=== PATIENT | male | born 1955 | race African-American/Black ===

== ENCOUNTER 2017-04-03 23:25 | Emergency (ER) | payer OTHER ==
[~2017-04-03] VITALS: Ht 172.7 cm; Wt 86.0 kg
[~2017-04-03 23:25] MED LIST: DIFL500T PO; Z.0.NO CURRENT MEDS
[2017-04-03 23:32] VITALS: BP 114/59; PULSE 83; RESP 18; TEMP 98.3; O2SAT 95
[2017-04-03] MEDS ORDERED: SODIUM CHLORIDE 0.9% FLUSH 10 ML FLUSH IVF PRN (23:45)
[2017-04-04 00:01] VITALS: RESP 18; O2SAT 96
[2017-04-04 00:12] LABS: AUTOMATED NEUTROPHIL # 10.4 TH/MM3 (1.8-7.7); BASOPHIL # 0.1 TH/MM3 (0-0.2); BASOPHIL % 0.5 % (0.0-2.0); HEMATOCRIT 35.8 % (39.0-51.0); HEMO FLAGS DIFF FINAL; LYMPH % 13.8 % (9.0-44.0); LYMPHOCYTE # 1.8 TH/MM3 (1.0-4.8); MEAN CELL VOLUME 95.8 FL (80.0-100.0); MEAN CORPUSCULAR HEMOGLOBIN 31.8 PG (27.0-34.0); MEAN CORPUSCULAR HGB CONC 33.2 % (32.0-36.0); NEUT % 78.7 % (16.0-70.0); PLATELET COUNT 195 TH/MM3 (150-450); RED BLOOD COUNT 3.74 MIL/MM3 (4.50-5.90); RED CELL DISTRIBUTION WIDTH 13.8 % (11.6-17.2); WHITE BLOOD COUNT 13.2 TH/MM3 (4.0-11.0)
--- NOTE | 2017-04-04 00:21 | PD ---
HPI . Syncope Chief Complaint: Syncope/Near-Syncope Time Seen by Provider: 23:43 Travel History International Travel<30 days: No Contact w/Intl Traveler<30days: No Traveled to known affect area: No History of Present Illness HPI Patient presents to us via [facility] following a syncopal episode at home. Patient is status post a TURP yesterday. His Claire catheter was removed today. He states that he has had 3-4 episodes of syncope while trying to urinate today. EMS was called the last time and he was brought to us for evaluation. The patient does not have any chest pain or shortness of breath. His syncopal episodes are preceded by a prodrome of feeling hot and dizzy. He has suffered no injury as a result of his syncopal episodes. Patient reports that he is taking Lortab for pain control following surgery. PFS Past Medical History COPD: Yes Genitourinary: Yes Hypertension: Yes Musculoskeletal: Yes (CHRONIC BACK PAIN) Past Surgical History Genitourinary Surgery: Yes (turp) Social History Alcohol Use: Yes (RARELY) Tobacco Use: Yes (1 PPD) Substance Use: No (HX OF COCAINE; DENIES AT THIS TIME) Allergies-Medications (Allergen,Severity, Reaction): Coded Allergies: No Known Allergies (Verified , 04/03/17) Reported Meds & Prescriptions Reported Meds & Active Scripts Active Active Prescriptions or Reported Medications Unobtainable Review of Systems Except as stated in HPI: all other systems reviewed are Neg General / Constitutional: Positive: Other (feels hot just prior to syncope) HENT: Positive: Lightheadedness Neurologic: Positive: Syncope Physical Exam Narrative GENERAL: Patient appears a bit sleepy with some mildly slurred speech. SKIN: Warm and dry. HEAD: Atraumatic. Normocephalic. EYES: Pupils equal and round. ENT: No nasal bleeding or discharge. Mucous membranes pink and moist. NECK: Trachea midline. Neck is supple. CARDIOVASCULAR: Regular rate and rhythm. Heart sounds normal. RESPIRATORY: No accessory muscle use. Lungs are clear with full air movement throughout. GASTROINTESTINAL: Abdomen soft, non-tender, nondistended. MUSCULOSKELETAL: No obvious deformities. No edema. NEUROLOGICAL: Awake and alert. No obvious cranial nerve deficits. Motor grossly within normal limits. Normal speech. PSYCHIATRIC: Appropriate mood and affect; insight and judgment normal. Data Data Last Documented VS Vital Signs Date Time Temp Pulse Resp B/P Pulse Ox O2 Delivery O2 Flow Rate FiO2 04/04/17 00:01 18 96 Nasal Cannula 2 04/03/17 23:32 98.3 83 114/59 Orders Basic Metabolic Panel (Bmp) (04/03/17 23:43) Complete Blood Count With Diff (04/03/17 23:43) Magnesium (Mg) (04/03/17 23:43) Ckmb (Isoenzyme) Profile (04/03/17 23:43) Troponin I (04/03/17 23:43) Ecg Monitoring (04/03/17 23:43) Iv Access Insert/Monitor (04/03/17 23:43) Oximetry (04/03/17 23:43) Sodium Chloride 0.9% Flush (Ns Flush) (04/03/17 23:45) CKMB (04/03/17 23:50) CKMB% (04/03/17 23:50) Labs Laboratory Tests Test 04/03/17 23:50 White Blood Count 13.2 TH/MM3 Red Blood Count 3.74 MIL/MM3 Hemoglobin 11.9 GM/DL Hematocrit 35.8 % Mean Corpuscular Volume 95.8 FL Mean Corpuscular Hemoglobin 31.8 PG Mean Corpuscular Hemoglobin 33.2 % Concent Red Cell Distribution Width 13.8 % Platelet Count 195 TH/MM3 Mean Platelet Volume 7.1 FL Neutrophils (%) (Auto) 78.7 % Lymphocytes (%) (Auto) 13.8 % Monocytes (%) (Auto) 7.0 % Eosinophils (%) (Auto) 0.0 % Basophils (%) (Auto) 0.5 % Neutrophils # (Auto) 10.4 TH/MM3 Lymphocytes # (Auto) 1.8 TH/MM3 Monocytes # (Auto) 0.9 TH/MM3 Eosinophils # (Auto) 0.0 TH/MM3 Basophils # (Auto) 0.1 TH/MM3 CBC Comment DIFF FINAL Differential Comment Sodium Level 133 MEQ/L Potassium Level 3.5 MEQ/L Chloride Level 95 MEQ/L Carbon Dioxide Level 29.9 MEQ/L Anion Gap 8 MEQ/L Blood Urea Nitrogen 20 MG/DL Creatinine 2.39 MG/DL Estimat Glomerular Filtration 34 ML/MIN Rate Random Glucose 149 MG/DL Calcium Level 8.0 MG/DL Magnesium Level 1.4 MG/DL Total Creatine Kinase 205 U/L Creatine Kinase MB 1.3 NG/ML Troponin I LESS THAN 0.02 NG/ML MDM Medical Decision Making Medical Screen Exam Complete: Yes Emergency Medical Condition: Yes Interpretation(s) EKG shows a sinus rhythm with no ST segment elevation or depression. Differential Diagnosis My differential diagnosis of syncope includes but is not limited to cardiac arrhythmia, hypovolemia, anemia, neurological catastrophe, vasovagal response Narrative Course Patient presents status post 3 or 4 syncopal episodes today at home. All have occurred with micturition following a TURP done yesterday. CBC & BMP Diagram 04/03/17 23:50 The patient does not have any recent chemistries for comparison. However, his renal function appears to have been declining over the years. Cardiac enzymes are negative. Diagnosis Primary Impression: Syncope Qualified Code: R55 - Vasovagal syncope Patient Instructions: General Instructions, Syncope (DC) Scripts Unable to Obtain Active Prescriptions or Reported Meds Disposition: DISCHARGE HOME Condition: Stable Nicolle Guthrie MD Apr 04, 2017 00:21
[2017-04-04 00:46] LABS: ANION GAP 8 MEQ/L (5-15); BICARBONATE 29.9 MEQ/L (21.0-32.0); BLOOD UREA NITROGEN 20 MG/DL (7-18); CHLORIDE 95 MEQ/L (98-107); GLOMERULAR FILTRATION RATE 34 ML/MIN (>89); MAGNESIUM 1.4 MG/DL (1.5-2.5); POTASSIUM 3.5 MEQ/L (3.5-5.1); SODIUM (NA) 133 MEQ/L (136-145)
[2017-04-04 00:49] LABS: CREATINE KINASE 205 U/L (39-308)
[2017-04-04 01:02] LABS: CKMB 1.3 NG/ML (0.5-3.6)
[2017-04-04 01:42] VITALS: BP 117/65; PULSE 66; RESP 18; O2SAT 95
[2017-04-04] MEDS ORDERED: TRAM50TA PO (01:47)
[2017-04-04] MEDS ORDERED: UMEC1AER INH (01:47)
[2017-04-04] MEDS ORDERED: PARO10TA2 PO (01:47)
[2017-04-04] MEDS ORDERED: GABA100C4 PO (01:47)
[2017-04-04] MEDS ORDERED: TRAZ50TA12 PO (01:47)
[2017-04-04] MEDS ORDERED: FINA1TAB16 PO (01:47)
[2017-04-04] MEDS ORDERED: LISI-519 PO (01:47)
[2017-04-04] MEDS ORDERED: CYCL5TAB PO (01:47)
[2017-04-04] MEDS ORDERED: HYDR12.57 PO (01:47)
[2017-04-04] MEDS ORDERED: TAMS0.4C4 PO (01:47)
--- NOTE | 2017-04-04 13:59 | EKG ---
Date Performed: 04/03/2017 Time Performed: 23:40:49 PTAGE: 61 years EKG: Sinus rhythm NONSPECIFIC ST & T-WAVE ABNORMALITY Compared to previous tracing, the minor ST changes are new [facility] HAND ECG PREVIOUS TRACING : 08/30/2016 10.01 DOCTOR: Dennys Dupree Interpretating Date/Time 04/04/2017 13:58:24
== END 2017-04-04 01:48 | disposition home or self-care (01) ==
LOC: NEPC 23:25
DX: R55 Syncope and collapse (principal); I10 Essential (primary) hypertension; J44.9 Chronic obstructive pulmonary disease, unspecified; F17.210 Nicotine dependence, cigarettes, uncomplicated; R94.31 Abnormal electrocardiogram [ECG] [EKG]
CPT/HCPCS: 80048; 82550; 82552; 83735; 84484; 85025; 93005; 99283

== ENCOUNTER 2017-04-06 11:26 | Inpatient (IN) | payer OTHER, MEDICARE ==
[~2017-04-06 11:26] MED LIST changes: +CYCL5TAB PO; -DIFL500T PO; +FINA1TAB16 PO; +GABA100C4 PO; +HYDR12.57 PO; +LISI-519 PO; +PARO10TA2 PO; +TAMS0.4C4 PO; +TRAM50TA PO; +TRAZ50TA12 PO; +UMEC1AER INH; -Z.0.NO CURRENT MEDS
[2017-04-06 11:28] VITALS: BP 139/77; PULSE 104; RESP 15; TEMP 99.6; O2SAT 98
--- NOTE | 2017-04-06 11:49 | PD ---
Physical Exam Time Seen by Provider: 11:47 Narrative 61 y/o male here with difficulty urinating, some back pain for the last few days. S/P TURP procedure. Vital signs reviewed. Seen at triage desk. Awaiting bed placement. Data Data Last Documented VS Vital Signs Date Time Temp Pulse Resp B/P Pulse Ox O2 Delivery O2 Flow Rate FiO2 04/06/17 11:28 99.6 104 15 139/77 98 MDM Medical Record Reviewed: Yes Supervised Visit with ZEB: Andrew Chapman Apr 06, 2017 11:48
--- NOTE | 2017-04-06 11:56 | PD ---
HPI Chief Complaint: Complaint Time Seen by Provider: 11:56 Travel History International Travel<30 days: No Contact w/Intl Traveler<30days: No Traveled to known affect area: No History of Present Illness HPI 61-year-old male with history of hypertension and COPD, recent TURP on April 02, [address] Dukes presents to emergency department for evaluation of urinary retention. Patient states that his Rasheed catheter was removed on April 03 and he began having difficulty urinating then. He actually was seen in the hospital that day following a vasovagal syncopal episode while trying to avoid. Patient was discharged home but continued to experience difficulty urinating and today he has been unable to void at all except for minimal gerbils. Reports significant abdominal pressure and flank pain bilaterally. Denies any nausea or vomiting. He has felt chilled without fever. He has no other symptoms to report. PFSH Past Medical History COPD: Yes Genitourinary: Yes Hypertension: Yes Musculoskeletal: Yes (CHRONIC BACK PAIN) Past Surgical History Genitourinary Surgery: Yes (turp) Social History Alcohol Use: Yes (RARELY) Tobacco Use: Yes (1 PPD) Substance Use: No (HX OF COCAINE; DENIES AT THIS TIME) Allergies-Medications (Allergen,Severity, Reaction): Coded Allergies: No Known Allergies (Verified , 04/03/17) Reported Meds & Prescriptions Reported Meds & Active Scripts Active Reported Anoro Ellipta Inh (Umeclidinium/Vilanterol) 62.5-25 Mcg/Act Aero 1 Puff INH DAILY Finasteride (Finasteride (Alopecia)) 1 Mg Tab 1 Mg PO DAILY Hydrochlorothiazide 12.5 Mg Cap 12.5 Mg PO BID Lisinopril 5 Mg Tab 5 Mg PO DAILY Gabapentin 100 Mg Cap 100 Mg PO TID Paroxetine (Paroxetine HCl) 10 Mg Tab 10 Mg PO DAILY Flexeril (Cyclobenzaprine HCl) 5 Mg Tab 5 Mg PO TID Trazodone (Trazodone HCl) 50 Mg Tab 50 Mg PO HS Tramadol (Tramadol HCl) 50 Mg Tab 100 Mg PO TID PRN Tamsulosin (Tamsulosin HCl) 0.4 Mg Cap 0.4 Mg PO HS Review of Systems Except as stated in HPI: all other systems reviewed are Neg Physical Exam Narrative GENERAL: Well-nourished male patient, in mild distress secondary to pain, unable to get comfortable in the fat. SKIN: Focused skin assessment warm/dry. HEAD: Atraumatic. Normocephalic. EYES: Pupils equal and round. No scleral icterus. No injection or drainage. ENT: No nasal bleeding or discharge. Mucous membranes pink and moist. NECK: Trachea midline. No JVD. CARDIOVASCULAR: Tachycardic rate and rhythm. No murmur appreciated. RESPIRATORY: No accessory muscle use. Clear to auscultation. Breath sounds equal bilaterally. GASTROINTESTINAL: Abdomen soft, with moderate distention in the lower abdomen, discomfort with palpation. Hepatic and splenic margins not palpable. MUSCULOSKELETAL: No obvious deformities. No clubbing. No cyanosis. No edema. Bilateral CVA tenderness. NEUROLOGICAL: Awake and alert. No obvious cranial nerve deficits. Motor grossly within normal limits. Normal speech. PSYCHIATRIC: Appropriate mood and affect; insight and judgment normal. Data Data Last Documented VS Vital Signs Date Time Temp Pulse Resp B/P Pulse Ox O2 Delivery O2 Flow Rate FiO2 04/06/17 13:56 81 16 Room Air 04/06/17 11:28 99.6 139/77 98 Orders Basic Metabolic Panel (Bmp) (04/06/17 12:01) Complete Blood Count With Diff (04/06/17 12:01) Prothrombin Time / Inr (Pt) (04/06/17 12:01) Act Partial Throm Time (Ptt) (04/06/17 12:01) Urinalysis - C+S If Indicated (04/06/17 12:01) Ct Abd/Pel W/O Iv Contrast (04/06/17 12:01) Iv Access Insert/Monitor (04/06/17 12:01) Ecg Monitoring (04/06/17 12:01) Oximetry (04/06/17 12:01) Ceftriaxone Inj (Rocephin Inj) (04/06/17 12:15) Sodium Chlor 0.9% 1000 Ml Inj (Ns 1000 M (04/06/17 12:01) Sodium Chloride 0.9% Flush (Ns Flush) (04/06/17 12:15) Electrocardiogram (04/06/17 12:01) Blood Culture (04/06/17 12:04) Lactic Acid Sepsis Protocol (04/06/17 12:04) Urinary Catheter Management HAIDER.Q8H (04/06/17 12:08) Labs Laboratory Tests Test 04/06/17 04/06/17 04/06/17 12:15 12:30 12:40 White Blood Count 11.6 TH/MM3 Red Blood Count 3.51 MIL/MM3 Hemoglobin 11.1 GM/DL Hematocrit 33.3 % Mean Corpuscular Volume 94.8 FL Mean Corpuscular Hemoglobin 31.7 PG Mean Corpuscular Hemoglobin 33.5 % Concent Red Cell Distribution Width 13.3 % Platelet Count 192 TH/MM3 Mean Platelet Volume 6.9 FL Neutrophils (%) (Auto) 75.3 % Lymphocytes (%) (Auto) 13.7 % Monocytes (%) (Auto) 10.7 % Eosinophils (%) (Auto) 0.0 % Basophils (%) (Auto) 0.3 % Neutrophils # (Auto) 8.7 TH/MM3 Lymphocytes # (Auto) 1.6 TH/MM3 Monocytes # (Auto) 1.2 TH/MM3 Eosinophils # (Auto) 0.0 TH/MM3 Basophils # (Auto) 0.0 TH/MM3 CBC Comment DIFF FINAL Differential Comment Prothrombin Time 11.4 SEC Prothromb Time International 1.0 RATIO Ratio Activated Partial 30.5 SEC Thromboplast Time Sodium Level 122 MEQ/L Potassium Level 3.8 MEQ/L Chloride Level 84 MEQ/L Carbon Dioxide Level 28.9 MEQ/L Anion Gap 9 MEQ/L Blood Urea Nitrogen 11 MG/DL Creatinine 1.14 MG/DL Estimat Glomerular Filtration 80 ML/MIN Rate Random Glucose 105 MG/DL Calcium Level 9.0 MG/DL Urine Color LIGHT-RED Urine Turbidity CLEAR Urine pH 6.5 Urine Specific Industry 1.002 Urine Protein 30 mg/dL Urine Glucose (UA) NEG mg/dL Urine Ketones NEG mg/dL Urine Occult Blood LARGE Urine Nitrite NEG Urine Bilirubin NEG Urine Urobilinogen LESS THAN 2.0 MG/DL Urine Leukocyte Esterase LARGE Urine RBC 2 /hpf Urine WBC 7 /hpf Urine Squamous Epithelial <1 /hpf Cells Urine Amorphous Sediment RARE Urine Bacteria FEW /hpf Microscopic Urinalysis Comment CULT NOT INDICATED Lactic Acid Level 1.6 mmol/L [facility] Medical Decision Making Medical Screen Exam Complete: Yes Emergency Medical Condition: Yes Medical Record Reviewed: Yes Differential Diagnosis Urinary retention versus obstruction versus postop infection versus postop complication versus cystitis versus pyelonephritis versus sepsis Narrative Course 61-year-old male presents to emergency department for evaluation of urinary retention and extreme discomfort with bilateral flank pain. Patient appears uncomfortable. Lab work is obtained and IV antibiotics are administered. Patient is provided pain control. A call has been placed to Dr. Dukes. In the meantime a 14 Japanese catheter is inserted with clear pink urinary output. I spoke with Dr. Dukes. He recommends discharge with rasheed catheter and to keep his appt for this week in office. Pt will be discharged pending no lab abnormality is observed. CBC is without leukocytosis. Hemoglobin is 11.1. No significant neutrophilia. BMP is with sodium of 122. Creatinine has improved since lab work on April 03. Lactic acid is 1.6. Urinalysis is with 30 protein area, large occult blood, large leukocyte esterase, 7 WBC, few bacteria, cultures not indicated. Due to patient's hyponatremia, a call has been place to [facility] for admission. Diagnosis Primary Impression: Hyponatremia Additional Impressions: Urinary retention Postoperative urinary retention Condition: Stable Concepcion Villarreal Apr 06, 2017 11:56 Concepcion Villarreal Apr 06, 2017 11:56
[2017-04-06] MEDS ORDERED: SODIUM CHLOR 0.9% 1000 ML INJ 1,000 ML IV SCH (12:01)
[2017-04-06] MEDS ORDERED: cefTRIAXone INJ 1,000 MG in SODIUM CHLORIDE 0.9% INJ 100 ML IV ONE (12:15)
[2017-04-06] MEDS ORDERED: SODIUM CHLORIDE 0.9% FLUSH 10 ML FLUSH IV FLUSH PRN ×2 (12:15→14:15)
[2017-04-06 13:02] LABS: AUTOMATED NEUTROPHIL # 8.7 TH/MM3 (1.8-7.7); BASOPHIL % 0.3 % (0.0-2.0); HEMATOCRIT 33.3 % (39.0-51.0); HEMO FLAGS DIFF FINAL; LYMPH % 13.7 % (9.0-44.0); LYMPHOCYTE # 1.6 TH/MM3 (1.0-4.8); MEAN CELL VOLUME 94.8 FL (80.0-100.0); MEAN CORPUSCULAR HEMOGLOBIN 31.7 PG (27.0-34.0); MEAN CORPUSCULAR HGB CONC 33.5 % (32.0-36.0); MONO % 10.7 % (0.0-8.0); NEUT % 75.3 % (16.0-70.0); PLATELET COUNT 192 TH/MM3 (150-450); RED BLOOD COUNT 3.51 MIL/MM3 (4.50-5.90); RED CELL DISTRIBUTION WIDTH 13.3 % (11.6-17.2); WHITE BLOOD COUNT 11.6 TH/MM3 (4.0-11.0)
[2017-04-06 13:11] LABS: BACTERIA, URINE FEW /hpf; BLOOD, URINE LARGE (NEG); COMMENT (UR) CULT NOT INDICATED; CULTURE IF INDICATED CULT NOT INDICATED; GLUCOSE,URINE NEG (NEG); KETONE, URINE NEG (NEG); NITRITE,URINE NEG (NEG); PH, URINE 6.5 (5.0-8.5); SQUAMOUS EPITHELIAL CELL URINE <1 /hpf (0-5)
[2017-04-06 13:15] LABS: URINE COLOR LIGHT-RED (YELLW/STRAW)
[2017-04-06 13:15] LABS: APTT (PATIENT) 30.5 SEC (24.3-30.1); PROTHROMBIN TIME - PATIENT 11.4 SEC (9.8-11.6)
[2017-04-06 13:26] LABS: BICARBONATE 28.9 MEQ/L (21.0-32.0)
[2017-04-06 13:30] LABS: POTASSIUM 3.8 MEQ/L (3.5-5.1)
--- NOTE | 2017-04-06 13:31 | RADRPT ---
EXAM DATE/TIME: 04/06/2017 13:04 [facility] COMPARISON: No previous studies available for comparison. INDICATIONS : Post turp trouble urinating. ORAL CONTRAST: No oral contrast ingested. RADIATION DOSE: 9.96 CTDIvol (mGy) MEDICAL HISTORY : Hypertension. Renal failure, acute. SURGICAL HISTORY : turp ENCOUNTER: Initial ACUITY: 1 day PAIN SCALE: 0/10 LOCATION: Bilateral Abdomen TECHNIQUE: Volumetric scanning of the abdomen and pelvis was performed. Using automated exposure control and ad justment of the mA and/or kV according to patient size, radiation dose was kept as low as reasonably achievable to obtain optimal diagnostic quality images. FINDINGS: LOWER LUNGS: The visualized lower lungs are clear. LIVER: Homogeneous density without lesion. There is no dilation of the biliary tree. No calcified gallston es. SPLEEN: Normal size without lesion. PANCREAS: Within normal limits. KIDNEYS: Normal in size and shape. There is no mass, stone, or hydronephrosis. ADRENAL GLANDS: Within normal limits. VASCULAR: There is no aortic aneurysm. BOWEL/MESENTERY: The stomach, small bowel, and colon demonstrate no acute abnormality. There is no free intraperitone al air or fluid. ABDOMINAL WALL: Within normal limits. RETROPERITONEUM: There is no lymphadenopathy. BLADDER: The urinary bladder is decompressed and contains a Claire balloon. The urinary bladder is thickwalled. No hematoma seen. REPRODUCTIVE: The prostate gland shows multiple calcifications throughout. A Claire is present within the urethral p ortion of the prostate. No hematoma. INGUINAL: There is no lymphadenopathy or hernia. MUSCULOSKELETAL: Within normal limits for patient age. CONCLUSION: 1. Significant calcification throughout the prostate gland. No discrete mass observed. 2. Urinary bladder totally decompressed and a Claire present. The urinary bladder is thick-walled sugg esting either acute inflammatory change versus trabeculation from bladder outlet obstruction. No vianney clarice or fluid collections. Carson Breen Jr., MD on April 06, 2017 at 13:25 Board Certified Radiologist. This report was verified electronically.
[2017-04-06 13:56] VITALS: PULSE 81; RESP 16
[2017-04-06] MEDS ORDERED: CIPR-9 PO (14:10)
[2017-04-06] MEDS ORDERED: HYDR-3516 PO (14:10)
[2017-04-06] MEDS ORDERED: LACTULOSE SYRUP 20 GM/30 ML CUP PO PRN (14:15)
[2017-04-06] MEDS ORDERED: ONDANSETRON HCL 4 MG/2 ML VIAL IVP PRN (14:15)
[2017-04-06] MEDS ORDERED: BISACODYL 10 MG SUPP RECTAL PRN (14:15)
[2017-04-06] MEDS ORDERED: SENNOSIDES 8.6 MG TAB PO PRN (14:15)
[2017-04-06] MEDS ORDERED: NALOXONE HCL 0.4 MG/ML AMP IV PRN (14:15)
[2017-04-06] MEDS ORDERED: MAGNESIUM HYDROXIDE SUSP 30 ML CUP PO PRN (14:15)
--- NOTE | 2017-04-06 14:54 | HHI.HP ---
[facility] Service [facility] Primary Care Physician Miguelangel Gallegos M.D. Admission Diagnosis hyponatremia; urinary retention; s/p turp 04/02 Diagnoses: Chief Complaint: Abdominal pain and urinary retention Travel History International Travel<30 Days: No Contact w/Intl Traveler <30 Da: No Traveled to Known Affected Are: No History of Present Illness 61-year-old male past medical history of hypertension, COPD, tobacco dependence , and severe BPH status post TURP on 04/02/17 who presented with urinary retention abdominal pain. Patient stated that on 04/03/2017 he had the Claire removed by home health. He stated after that he had a little urine output but practically no urine output. Patient stated he did started abdominal pain so he went to emergency department. He denies any nausea vomiting, constipation or fevers or chills. Patient stated that after he had a Claire placed in the emergency department his pain went away. Labs were done which showed patient had a low sodium of 122 so ED asked to admit the patient. Per patient's was at the bedside she stated that he has been a little intimately confused lately. She denies any change in medication regimen. Patient had little by mouth intake. Review of Systems Constitutional: DENIES: Diaphoretic episodes, Fatigue, Fever, Weight gain, Weight loss, Chills, Dizziness, Change in appetite, Night Sweats Endocrine: DENIES: Heat/cold intolerance, Polydipsia, Polyuria, Polyphagia Eyes: DENIES: Blurred vision, Diplopia, Eye inflammation, Eye pain, Vision loss , Photosensitivity, Double Vision Ears, nose, mouth, throat: DENIES: Tinnitus, Hearing loss, Vertigo, Nasal discharge, Oral lesions, Throat pain, Hoarseness, Ear Pain, Running Nose, Epistaxis, Sinus Pain, Toothache, Odynophagia Respiratory: DENIES: Apneas, Cough, Snoring, Wheezing, Hemoptysis, Sputum production, Shortness of breath Cardiovascular: DENIES: Chest pain, Palpitations, Syncope, Dyspnea on Exertion , PND, Lower Extremity Edema, Orthopnea, Claudication Gastrointestinal: COMPLAINS OF: Abdominal pain, DENIES: Black stools, Bloody stools, Constipation, Diarrhea, Nausea, Vomiting, Difficulty Swallowing, Anorexia Genitourinary: DENIES: Sexual dysfunction, Urinary frequency, Urinary incontinence, Urgency, Hematuria, Dysuria, Nocturia, Penile Discharge, Testicular Pain, Testicular Swelling Musculoskeletal: DENIES: Joint pain, Muscle aches, Stiffness, Joint Swelling, Back pain, Neck pain Integumentary: DENIES: Abnormal pigmentation, Nail changes, Pruritus, Rash Hematologic/lymphatic: DENIES: Bruising, Lymphadenopathy Immunologic/allergic: DENIES: Eczema, Urticaria Neurologic: DENIES: Abnormal gait, Headache, Localized weakness, Paresthesias, Seizures, Speech Problems, Tremor, Poor Balance Psychiatric: DENIES: Anxiety, Confusion, Mood changes, Depression, Hallucinations, Agitation, Suicidal Ideation, Homicidal Ideation, Delusions Past Family Social History Past Medical History COPD Hypertension Tobacco dependence Severe BPH Anxiety/depression Past Surgical History TURP on 04/02/17. Reported Medications Cipro (Ciprofloxacin HCl) 500 Mg Tab 500 Mg PO BID Hydrocodone-Acetaminophen 5-325 mg Tab 1 Tab PO Q4H PRN Anoro Ellipta Inh (Umeclidinium/Vilanterol) 62.5-25 Mcg/Act Aero 1 Puff INH DAILY Finasteride (Finasteride (Alopecia)) 1 Mg Tab 1 Mg PO DAILY Hydrochlorothiazide 12.5 Mg Cap 12.5 Mg PO BID Lisinopril 5 Mg Tab 5 Mg PO DAILY Gabapentin 100 Mg Cap 100 Mg PO TID Paroxetine (Paroxetine HCl) 10 Mg Tab 10 Mg PO DAILY Flexeril (Cyclobenzaprine HCl) 5 Mg Tab 5 Mg PO TID Trazodone (Trazodone HCl) 50 Mg Tab 50 Mg PO HS Tramadol (Tramadol HCl) 50 Mg Tab 100 Mg PO TID PRN Tamsulosin (Tamsulosin HCl) 0.4 Mg Cap 0.4 Mg PO HS Allergies: Coded Allergies: No Known Allergies (Verified , 04/03/17) Active Ordered Medications Current Medications Ceftriaxone Sodium 1000 mg/ Sodium Chloride 100 ml @ 200 mls/hr ONCE ONCE IV Last administered on 04/06/17t 13:45; Start 04/06/17 at 12:15; Stop 04/06/17 at 12: 44; Status DC Sodium Chloride (NS 1000 ml Inj) 1,000 ml @ 1,000 mls/hr Q1H IV Last administered on 04/06/17t 13:15; Start 04/06/17 at 12:01; Stop 04/06/17 at 13:00; Status DC Sodium Chloride 2 ml 2 ml UNSCH PRN IV FLUSH FLUSH AFTER USING IV ACCESS; Start 04/06/17 at 12:15; Stop 04/06/17 at 14:24; Status DC Sodium Chloride (NS 1000 ml Inj) 1,000 ml @ 100 mls/hr Q10H IV ; Start 04/06/17 at 14:08 Sodium Chloride (NS Flush) 2 ml UNSCH PRN IV FLUSH FLUSH AFTER USING IV ACCESS ; Start 04/06/17 at 14:15 Sodium Chloride (NS Flush) 2 ml BID IV FLUSH ; Start 04/06/17 at 21:00 Ondansetron HCl (Zofran Inj) 4 mg Q6H PRN IVP NAUSEA OR VOMITING; Start at 14:15 Naloxone HCl (Narcan Inj) 0.4 mg UNSCH PRN IV SEE LABEL COMMENTS; Start at 14:15 Senna/Docusate Sodium (Helen-Colace) 1 tab BID PO ; Start 04/06/17 at 21:00 Magnesium Hydroxide (Milk Of Magnesia Liq) 30 ml Q12H PRN PO MILD - MODERATE CONSTIPATION; Start 04/06/17 at 14:15 Sennosides (Senokot) 17.2 mg Q12H PRN PO MODERATE - SEVERE CONSTIPATION; Start 04/06/17 at 14:15 Bisacodyl (Dulcolax Supp) 10 mg DAILY PRN RECTAL SEVERE CONSITIPATION; Start at 14:15 Lactulose (Lactulose Liq) 30 ml DAILY PRN PO SEVERE CONSITIPATION; Start at 14:15 Family History Brother had unknown cancer Social History Smokes half pack per day intermittently since the age of [age] years old. Patient denies any alcohol or illicit drug use. Physical Exam Vital Signs Vital Signs Date Time Temp Pulse Resp B/P Pulse Ox O2 Delivery O2 Flow Rate FiO2 04/06/17 13:56 81 16 Room Air 04/06/17 11:28 99.6 104 15 139/77 98 Physical Exam GENERAL: This is a well-nourished, well-developed patient, in no apparent distress. SKIN: No rashes, ecchymoses or lesions. Cool and dry. HEAD: Atraumatic. Normocephalic. No temporal or scalp tenderness. EYES: Pupils equal round and reactive. Extraocular motions intact. No scleral icterus. No injection or drainage. ENT: Nose without bleeding, purulent drainage or septal hematoma. Throat without erythema, tonsillar hypertrophy or exudate. Uvula midline. Airway patent. NECK: Trachea midline. No JVD or lymphadenopathy. Supple, nontender, no meningeal signs. CARDIOVASCULAR: Regular rate and rhythm without murmurs, gallops, or rubs. RESPIRATORY: Clear to auscultation. Breath sounds equal bilaterally. No wheezes , rales, or rhonchi. GASTROINTESTINAL: Abdomen soft, non-tender, nondistended. No hepato-splenomegaly , or palpable masses. No guarding. MUSCULOSKELETAL: Extremities without clubbing, cyanosis, or edema. No joint tenderness, effusion, or edema noted. No calf tenderness. Negative Homans sign bilaterally. NEUROLOGICAL: Awake and alert. Cranial nerves II through XII intact. Motor and sensory grossly within normal limits. Five out of 5 muscle strength in all muscle groups. Normal speech. Laboratory Laboratory Tests Test 04/06/17 04/06/17 04/06/17 12:15 12:30 12:40 White Blood Count 11.6 Red Blood Count 3.51 Hemoglobin 11.1 Hematocrit 33.3 Mean Corpuscular Volume 94.8 Mean Corpuscular Hemoglobin 31.7 Mean Corpuscular Hemoglobin 33.5 Concent Red Cell Distribution Width 13.3 Platelet Count 192 Mean Platelet Volume 6.9 Neutrophils (%) (Auto) 75.3 Lymphocytes (%) (Auto) 13.7 Monocytes (%) (Auto) 10.7 Eosinophils (%) (Auto) 0.0 Basophils (%) (Auto) 0.3 Neutrophils # (Auto) 8.7 Lymphocytes # (Auto) 1.6 Monocytes # (Auto) 1.2 Eosinophils # (Auto) 0.0 Basophils # (Auto) 0.0 CBC Comment DIFF FINAL Differential Comment Prothrombin Time 11.4 Prothromb Time International 1.0 Ratio Activated Partial 30.5 Thromboplast Time Sodium Level 122 Potassium Level 3.8 Chloride Level 84 Carbon Dioxide Level 28.9 Anion Gap 9 Blood Urea Nitrogen 11 Creatinine 1.14 Estimat Glomerular Filtration 80 Rate Random Glucose 105 Calcium Level 9.0 Urine Color LIGHT-RED Urine Turbidity CLEAR Urine pH 6.5 Urine Specific [place] 1.002 Urine Protein 30 Urine Glucose (UA) NEG Urine Ketones NEG Urine Occult Blood LARGE Urine Nitrite NEG Urine Bilirubin NEG Urine Urobilinogen LESS THAN 2.0 Urine Leukocyte Esterase LARGE Urine RBC 2 Urine WBC 7 Urine Squamous Epithelial <1 Cells Urine Amorphous Sediment RARE Urine Bacteria FEW Microscopic Urinalysis Comment CULT NOT INDICATED Lactic Acid Level 1.6 Date/Time Procedure Status Source Growth 04/06/17 12:47 Aerobic Blood Culture Received Blood Peripheral Pending 04/06/17 12:47 Anaerobic Blood Culture Received Blood Peripheral Pending Result Diagram: 04/06/17 1215 04/06/17 1215 Imaging Last Impressions Abdomen/Pelvis CT 04/06/17 1201 Signed Impressions: Service Date/Time: Thursday, April 06, 2017 13:04 - CONCLUSION: 1. Significant calcification throughout the prostate gland. No discrete mass observed. 2. Urinary bladder totally decompressed and a Claire present. The urinary bladder is thick-walled suggesting either acute inflammatory change versus trabeculation from bladder outlet obstruction. No hematoma or fluid collections. Carson Breen Jr., MD Assessment and Plan Assessment and Plan 61-year-old male with BPH status post TURP on 04/02/17 complaining of urinary retention and abdominal pain Urinary retention -Secondary to inflammatory changes due to TURP. -Dr. Dwyer patient's urologist was notified in the ED and he recommended to keep the Claire in and for patient to follow-up as outpatient. -Will keep patient in the hospital. -Patient is on Cipro for prophylaxis. We'll continue his Cipro. Hyponatremia, euvolemic -Most likely secondary to urinary retention and mild dehydration. -Will start normal saline and monitor patient clinically with neuro exams and sodium levels. Hypertension/COPD/anxiety/depression -Resume home medication. Tobacco dependence -Counseled. Patient does not want to stop smoking despite harm. DVT prophylaxis -SCDs. Code Status full Discussed Condition With Patient, his , and his son at the bedside. Physician Certification 2 Midnight Certification Type: Admission for Inpatient Services Order for Inpatient Services The services are ordered in accordance with Medicare regulations or non- Medicare payer requirements, as applicable. In the case of services not specified as inpatient-only, they are appropriately provided as inpatient services in accordance with the 2-midnight benchmark. Estimated LOS (days): 2 2 days is the estimated time the patient will need to remain in the hospital, assuming treatment plan goals are met and no additional complications. Post-Hospital Plan: Nettie Patel MD Apr 06, 2017 14:54
[2017-04-06] MEDS ORDERED: traMADol HCL 50 MG TAB PO PRN (15:00)
[2017-04-06] MEDS: SODIUM CHLOR 0.9% 1000 ML INJ 1,000 ML IV SCH ×2 (15:06→20:01)
[2017-04-06 17:09] VITALS: BP 133/68; TEMP 98.6
[2017-04-06 17:41] VITALS: BP 122/55; PULSE 90; RESP 15; TEMP 97.7; O2SAT 97
[2017-04-06] MEDS: GABAPENTIN 100 MG CAP PO SCH (18:10)
[2017-04-06] MEDS: CYCLOBENZAPRINE HCL 10 MG TAB PO SCH (18:10)
[2017-04-06 19:58] VITALS: PULSE 80
[2017-04-06 20:00] VITALS: BP 138/70; PULSE 86; RESP 16; TEMP 97.9; O2SAT 98
[2017-04-06] MEDS: HYDROCHLOROTHIAZIDE 12.5 MG CAP PO SCH (20:00)
[2017-04-06] MEDS: ACETAMINOPHEN/HYDROcodone 325 MG/5 MG TAB PO PRN (20:00)
[2017-04-06] MEDS: DOCUSATE SODIUM 50 MG/SENNA 8.6 MG TAB PO SCH (20:00)
[2017-04-06] MEDS: CIPROFLOXACIN 500 MG TAB PO SCH (20:01)
[2017-04-06] MEDS: SODIUM CHLORIDE 0.9% FLUSH 10 ML FLUSH IV FLUSH SCH (20:01)
[2017-04-06] MEDS ORDERED: traZODone HCL 50 MG TAB PO SCH (21:00)
[2017-04-06] MEDS ORDERED: OXYBUTYNIN CHLORIDE 5 MG TAB PO ONE (21:15)
[2017-04-07] VITALS: BP 137/72; PULSE 75; RESP 18; TEMP 97.6; O2SAT 98
[2017-04-07 04:00] VITALS: BP 139/66; PULSE 88; RESP 20; TEMP 98.5; O2SAT 98
[2017-04-07 06:25] LABS: HEMATOCRIT 35.9 % (39.0-51.0); MEAN CELL VOLUME 95.1 FL (80.0-100.0); MEAN CORPUSCULAR HEMOGLOBIN 31.5 PG (27.0-34.0); MEAN CORPUSCULAR HGB CONC 33.1 % (32.0-36.0); PLATELET COUNT 208 TH/MM3 (150-450); RED BLOOD COUNT 3.77 MIL/MM3 (4.50-5.90); RED CELL DISTRIBUTION WIDTH 13.2 % (11.6-17.2); REVIEW FLAG FINAL; WHITE BLOOD COUNT 6.6 TH/MM3 (4.0-11.0)
[2017-04-07 07:07] LABS: BICARBONATE 33.3 MEQ/L (21.0-32.0); POTASSIUM 3.5 MEQ/L (3.5-5.1)
[2017-04-07 08:00] VITALS: BP 128/64; PULSE 85; RESP 18; TEMP 98.2; O2SAT 100
[2017-04-07 08:03] VITALS: PULSE 87
[2017-04-07] MEDS: HYDROCHLOROTHIAZIDE 12.5 MG CAP PO SCH (08:43)
[2017-04-07] MEDS: GABAPENTIN 100 MG CAP PO SCH ×2 (08:44→13:25)
[2017-04-07] MEDS: SODIUM CHLORIDE 0.9% FLUSH 10 ML FLUSH IV FLUSH SCH (08:44)
[2017-04-07] MEDS: DOCUSATE SODIUM 50 MG/SENNA 8.6 MG TAB PO SCH (08:44)
[2017-04-07] MEDS: CYCLOBENZAPRINE HCL 10 MG TAB PO SCH ×2 (08:44→13:25)
[2017-04-07] MEDS: CIPROFLOXACIN 500 MG TAB PO SCH (08:44)
[2017-04-07] MEDS ORDERED: LISINOPRIL 5 MG TAB PO SCH (09:00)
[2017-04-07] MEDS ORDERED: PARoxetine HCL 20 MG TAB PO SCH (09:00)
[2017-04-07] MEDS ORDERED: FINASTERIDE 1 MG PO SCH (09:00)
[2017-04-07] MEDS ORDERED: UMECLIDINIUM 62.5 MCG/VILANTEROL 25 MCG INHALER INH SCH (09:00)
[2017-04-07] MEDS: SODIUM CHLOR 0.9% 1000 ML INJ 1,000 ML IV SCH (10:08)
[2017-04-07] MEDS: ACETAMINOPHEN/HYDROcodone 325 MG/5 MG TAB PO PRN (10:34)
[2017-04-07 12:00] VITALS: BP 125/71; PULSE 90; RESP 18; TEMP 98.2; O2SAT 100
--- NOTE | 2017-04-07 14:25 | HHI.PR ---
Subjective Remarks Follow-up for urinary retention and hyponatremia Patient stated overnight he had problems with his Rasheed. He felt like his Rasheed was not emptying his bladder. Patient stated that the nurse had to adjust his rasheed multiple times. I spoke to his daytime nurse stated that patient seems to have bladder spasms and his Rasheed was pulled back at night. Otherwise patient had no other complaints. He denied any headache, fatigue, visual changes, nausea/ vomiting, or focal neurological deficits. Objective Vitals Vital Signs Date Time Temp Pulse Resp B/P Pulse Ox O2 Delivery O2 Flow Rate FiO2 04/07/17 12:00 98.2 90 18 125/71 100 04/07/17 11:34 18 04/07/17 08:03 87 04/07/17 08:00 98.2 85 18 128/64 100 04/07/17 04:00 98.5 88 20 139/66 98 04/07/17 00:00 97.6 75 18 137/72 98 04/06/17 20:00 97.9 86 16 138/70 98 04/06/17 19:58 80 04/06/17 17:41 97.7 90 15 122/55 97 04/06/17 17:09 98.6 91 133/68 99 I/O 04/06/17 04/06/17 04/06/17 04/07/17 04/07/17 04/07/17 07:00 15:00 23:00 07:00 15:00 23:00 Intake Total 780 ml 1061 ml Output Total 8200 ml 400 ml Balance -7420 ml 661 ml Intake Oral 480 ml 480 ml IV Total 300 ml 581 ml Output Urine Total 8200 ml 400 ml # Voids 0 # Bowel Movements 1 0 Result Diagram: 04/07/17 0537 04/07/17 0537 Objective Remarks GENERAL: in nad CARDIOVASCULAR: Regular rate and rhythm without murmurs, gallops, or rubs. RESPIRATORY: Breath sounds equal bilaterally. No accessory muscle use. GASTROINTESTINAL: Abdomen soft, non-tender, nondistended. MUSCULOSKELETAL: No cyanosis, or edema. BACK: Nontender without obvious deformity. No CVA tenderness. Medications and IVs Current Medications Ceftriaxone Sodium 1000 mg/ Sodium Chloride 100 ml @ 200 mls/hr ONCE ONCE IV Last administered on 04/06/17t 13:45; Start 04/06/17 at 12:15; Stop 04/06/17 at 12: 44; Status DC Sodium Chloride (NS 1000 ml Inj) 1,000 ml @ 1,000 mls/hr Q1H IV Last administered on 04/06/17 13:15; Start 04/06/17 at 12:01; Stop 04/06/17 at 13:00; Status DC Sodium Chloride 2 ml 2 ml UNSCH PRN IV FLUSH FLUSH AFTER USING IV ACCESS; Start 04/06/17 at 12:15; Stop 04/06/17 at 14:24; Status DC Sodium Chloride (NS 1000 ml Inj) 1,000 ml @ 100 mls/hr Q10H IV Last administered on 04/06/17 20:01; Start 04/06/17 at 14:08 Sodium Chloride (NS Flush) 2 ml UNSCH PRN IV FLUSH FLUSH AFTER USING IV ACCESS ; Start 04/06/17 at 14:15 Sodium Chloride (NS Flush) 2 ml BID IV FLUSH Last administered on 04/06/17 20: 01; Start 04/06/17 at 21:00 Ondansetron HCl (Zofran Inj) 4 mg Q6H PRN IVP NAUSEA OR VOMITING; Start at 14:15 Naloxone HCl (Narcan Inj) 0.4 mg UNSCH PRN IV SEE LABEL COMMENTS; Start at 14:15 Senna/Docusate Sodium (Helen-Colace) 1 tab BID PO Last administered on 04/07/17 08:44; Start 04/06/17 at 21:00 Magnesium Hydroxide (Milk Of Magnesia Liq) 30 ml Q12H PRN PO MILD - MODERATE CONSTIPATION; Start 04/06/17 at 14:15 Sennosides (Senokot) 17.2 mg Q12H PRN PO MODERATE - SEVERE CONSTIPATION; Start 04/06/17 at 14:15 Bisacodyl (Dulcolax Supp) 10 mg DAILY PRN RECTAL SEVERE CONSITIPATION; Start at 14:15 Lactulose (Lactulose Liq) 30 ml DAILY PRN PO SEVERE CONSITIPATION; Start at 14:15 Ciprofloxacin (Cipro) 500 mg BID PO Last administered on 04/07/17 08:44; Start 04/06/17 at 21:00 Cyclobenzaprine HCl (Flexeril) 5 mg TID PO Last administered on 04/07/17 13:25 ; Start 04/06/17 at 18:00 Gabapentin (Neurontin) 100 mg TID PO Last administered on 04/07/17 13:25; Start 04/06/17 at 18:00 Hydrochlorothiazide (Microzide) 12.5 mg BID PO Last administered on 04/07/17 08 :43; Start 04/06/17 at 21:00 Acetaminophen/ Hydrocodone Bitart ([place] 5-325 Mg) 1 tab Q4H PRN PO PAIN SCALE 6-10 Last administered on 04/07/17 10:34; Start 04/06/17 at 15:00 Lisinopril (Prinivil) 5 mg DAILY PO Last administered on 04/07/17 08:43; Start 04/07/17 at 09:00 Tamsulosin HCl (Flomax) 0.4 mg HS PO ; Start 04/07/17 at 21:00 Tramadol HCl (Ultram) 100 mg TID PRN PO PAIN SCALE 1-5; Start 04/06/17 at 15:00 Trazodone HCl (Desyrel) 50 mg HS PO Last administered on 04/06/17 20:00; Start 04/06/17 at 21:00 Patient Own Medication PT OWN MED: FINASTER... DAILY PO ; Start 04/07/17 at 09:00 ; Status Hold Paroxetine HCl (Paxil) 10 mg DAILY PO Last administered on 04/07/17 08:43; Start 04/07/17 at 09:00 Oxybutynin Chloride (Ditropan) 5 mg ONCE ONCE PO Last administered on 21:33; Start 04/06/17 at 21:15; Stop 04/06/17 at 21:16; Status DC A/P Assessment and Plan 61-year-old male with BPH status post TURP on 04/02/17 complaining of urinary retention and abdominal pain Urinary retention -Secondary to inflammatory changes due to TURP. -Dr. Dwyer patient's urologist was notified in the ED and he recommended to keep the Rasheed in and for patient to follow-up as outpatient. -Patient is on Cipro for prophylaxis. We'll continue his Cipro. -Patient has problems with his Rasheed will consult Dr. Dwyer in regards to this. Hyponatremia, euvolemic -Most likely secondary to urinary retention and mild dehydration. -Resolved. Clinically he is doing well. Hypertension/COPD/anxiety/depression -Continue home medication. Tobacco dependence -Counseled. Patient does not want to stop smoking despite harm. DVT prophylaxis -SCDs. Discharge Planning Can be discharged from the hospital once cleared by urologist. Nettie Molina MD Apr 07, 2017 14:25
--- NOTE | 2017-04-07 14:58 | PD.CONS ---
[facility] Service Urology Consult Requested By Reason for Consult Urinary retention Primary Care Physician Miguelangel Gallegos M.D. Diagnosis: History of Present Illness 61-year-old male with history obstructing BPH who is status post a transurethral resection of the prostate on April 02 of [address]. Moustapha Dukes. Patient presented to the emergency room with lower abdominal pain and was found to be in acute urinary retention. Patient had a 14 [place] Claire catheter placed with resolution of his symptoms. was contacted and he recommended outpatient follow up at his office. Laboratory studies performed while in the emergency room demonstrated significant hyponatremia measuring 122 and thus the patient was admitted to the medical service. Since being admitted the patient's serum sodium has normalized. At the time of consultation the patient was resting quietly and in no acute distress. He reports that the Claire catheter has been draining well all day. Review of Systems Constitutional: DENIES: Fever, Chills Gastrointestinal: COMPLAINS OF: Abdominal pain (lower abdominal pain resolved after Claire placement) Genitourinary: DENIES: Hematuria Musculoskeletal: DENIES: Back pain Except as stated in HPI: all other systems reviewed are Neg Past Family Social History Past Medical History Obstructing BPH COPD Hypertension Anxiety/depression Past Surgical History Status post TURP on April 02 of this year Reported Medications Refer to EMR Allergies: Coded Allergies: No Known Allergies (Verified , 04/03/17) Active Ordered Medications Refer to EMR Family History Reviewed and noncontributory Social History Smoker of one half pack per day since age of 17 Denies alcohol or illicit drug abuse Physical Exam Vital Signs Date Time Temp Pulse Resp B/P Pulse Ox O2 Delivery O2 Flow Rate FiO2 04/07/17 12:00 98.2 90 18 125/71 100 04/07/17 11:34 18 04/07/17 08:03 87 04/07/17 08:00 98.2 85 18 128/64 100 04/07/17 04:00 98.5 88 20 139/66 98 04/07/17 00:00 97.6 75 18 137/72 98 04/06/17 20:00 97.9 86 16 138/70 98 04/06/17 19:58 80 04/06/17 17:41 97.7 90 15 122/55 97 04/06/17 17:09 98.6 91 133/68 99 Physical Exam GENERAL: This is a well-nourished, well-developed patient, in no apparent distress. SKIN: No rashes, ecchymoses or lesions. Cool and dry. HEAD: Atraumatic. Normocephalic. No temporal or scalp tenderness. EYES: Pupils equal round and reactive. Extraocular motions intact. No scleral icterus. No injection or drainage. ENT: Nose without bleeding, purulent drainage or septal hematoma. Throat without erythema, tonsillar hypertrophy or exudate. Uvula midline. Airway patent. NECK: Trachea midline. No JVD or lymphadenopathy. Supple, nontender, no meningeal signs. CARDIOVASCULAR: Regular rate and rhythm without murmurs, gallops, or rubs. RESPIRATORY: Clear to auscultation. Breath sounds equal bilaterally. No wheezes , rales, or rhonchi. GASTROINTESTINAL: Abdomen soft, non-tender, nondistended. No hepato-splenomegaly , or palpable masses. No guarding. GENITOURINARY: MUSCULOSKELETAL: Extremities without clubbing, cyanosis, or edema. No joint tenderness, effusion, or edema noted. No calf tenderness. Negative Homans sign bilaterally. NEUROLOGICAL: Awake and alert. Cranial nerves II through XII intact. Motor and sensory grossly within normal limits. Five out of 5 muscle strength in all muscle groups. Normal speech. Laboratory Tests Test 04/07/17 05:37 White Blood Count 6.6 Red Blood Count 3.77 Hemoglobin 11.9 Hematocrit 35.9 Mean Corpuscular Volume 95.1 Mean Corpuscular Hemoglobin 31.5 Mean Corpuscular Hemoglobin 33.1 Concent Red Cell Distribution Width 13.2 Platelet Count 208 Mean Platelet Volume 7.0 Sodium Level 139 Potassium Level 3.5 Chloride Level 100 Carbon Dioxide Level 33.3 Anion Gap 6 Blood Urea Nitrogen 13 Creatinine 1.06 Estimat Glomerular Filtration 87 Rate Random Glucose 100 Calcium Level 9.4 Date/Time Procedure Status Source Growth 04/06/17 12:47 Aerobic Blood Culture - Preliminary Resulted Blood Peripheral NO GROWTH IN 1 DAY 04/06/17 12:47 Anaerobic Blood Culture - Preliminary Resulted Blood Peripheral NO GROWTH IN 1 DAY Result Diagram: 04/07/17 0537 04/07/17 0537 Imaging Last Impressions Abdomen/Pelvis CT 04/06/17 1201 Signed Impressions: Service Date/Time: Thursday, April 06, 2017 13:04 - CONCLUSION: 1. Significant calcification throughout the prostate gland. No discrete mass observed. 2. Urinary bladder totally decompressed and a Claire present. The urinary bladder is thick-walled suggesting either acute inflammatory change versus trabeculation from bladder outlet obstruction. No hematoma or fluid collections. Carson Breen Jr., MD Assessment and Plan Assessment and Plan Urologic impression: #1 status post TURP for BPH now with urinary retention #2 resolved hyponatremia Recommendations: #1 maintain Claire catheter to gravity drainage #2 okay to discharge home from perspective 1 medically stable #3 patient advised to contact Dr. Dukes office and arrange an outpatient follow up visit Pete Deleon MD Apr 07, 2017 14:58
[2017-04-07 16:00] VITALS: BP 114/55; PULSE 83; RESP 18; TEMP 96.6; O2SAT 100
--- NOTE | 2017-04-07 16:27 | HHI.DS ---
Discharge Summary Admission Date Apr 06, 2017 at 14:10 Discharge Date: Apr 07, 2017 Admitting Diagnosis hyponatremia; urinary retention; s/p turp 04/02 (1) Hyponatremia ICD Code: E87.1 Diagnosis: Principal (2) Postoperative urinary retention ICD Code: N99.89 Procedures rasheed placement. Brief History - From Admission 61-year-old male past medical history of hypertension, COPD, tobacco dependence , and severe BPH status post TURP on 04/02/17 who presented with urinary retention abdominal pain. Patient stated that on 04/03/2017 he had the Rasheed removed by home health. He stated after that he had a little urine output but practically no urine output. Patient stated he did started abdominal pain so he went to emergency department. He denies any nausea vomiting, constipation or fevers or chills. Patient stated that after he had a Rasheed placed in the emergency department his pain went away. Labs were done which showed patient had a low sodium of 122 so ED asked to admit the patient. Per patient's was at the bedside she stated that he has been a little intimately confused lately. She denies any change in medication regimen. Patient had little by mouth intake. CBC/BMP: 04/07/17 0537 04/07/17 0537 Significant Findings Laboratory Tests Test 04/06/17 04/06/17 04/07/17 12:15 12:30 05:37 White Blood Count 11.6 TH/MM3 (4.0-11.0) Red Blood Count 3.51 MIL/MM3 3.77 MIL/MM3 (4.50-5.90) (4.50-5.90) Hemoglobin 11.1 GM/DL 11.9 GM/DL (13.0-17.0) (13.0-17.0) Hematocrit 33.3 % 35.9 % (39.0-51.0) (39.0-51.0) Mean Platelet Volume 6.9 FL (7.0-11.0) Neutrophils (%) (Auto) 75.3 % (16.0-70.0) Monocytes (%) (Auto) 10.7 % (0.0-8.0) Neutrophils # (Auto) 8.7 TH/MM3 (1.8-7.7) Monocytes # (Auto) 1.2 TH/MM3 (0-0.9) Activated Partial 30.5 SEC Thromboplast Time (24.3-30.1) Sodium Level 122 MEQ/L (136-145) Chloride Level 84 MEQ/L (98-107) Estimat Glomerular Filtration 80 ML/MIN (>89) 87 ML/MIN (>89) Rate Urine Color LIGHT-RED (YELLW/STRAW) Urine Protein 30 mg/dL (NEG-TRACE) Urine Occult Blood LARGE (NEG) Urine Leukocyte Esterase LARGE (NEG) Urine WBC 7 /hpf (0-5) Urine Bacteria FEW /hpf (NONE) Carbon Dioxide Level 33.3 MEQ/L (21.0-32.0) Imaging Last Impressions Abdomen/Pelvis CT 04/06/17 1201 Signed Impressions: Service Date/Time: Thursday, April 06, 2017 13:04 - CONCLUSION: 1. Significant calcification throughout the prostate gland. No discrete mass observed. 2. Urinary bladder totally decompressed and a Rasheed present. The urinary bladder is thick-walled suggesting either acute inflammatory change versus trabeculation from bladder outlet obstruction. No hematoma or fluid collections. Carson Breen Jr., MD PE at Discharge GENERAL: in nad CARDIOVASCULAR: Regular rate and rhythm without murmurs, gallops, or rubs. RESPIRATORY: Breath sounds equal bilaterally. No accessory muscle use. GASTROINTESTINAL: Abdomen soft, non-tender, nondistended. MUSCULOSKELETAL: No cyanosis, or edema. BACK: Nontender without obvious deformity. No CVA tenderness. Hospital Course 61-year-old male with BPH status post TURP on 04/02/17 complaining of urinary retention and abdominal pain Urinary retention -Secondary to inflammatory changes due to TURP. -Dr. Dwyer patient's urologist was notified in the ED and he recommended to keep the Rasheed in and for patient to follow-up as outpatient. -Patient is on Cipro for prophylaxis. We'll continue his Cipro. -Patient has problems with his Rasheed so and urologist was consulted. Urologist day for Rasheed to gravity and can be discharged to home with follow with Dr. Dwyer. Hyponatremia, euvolemic -Most likely secondary to urinary retention and mild dehydration. -Resolved with placement at Rasheed and IV fluids. Patient was asymptomatic. Hypertension/COPD/anxiety/depression -Continue home medication. Tobacco dependence -Counseled. Patient does not want to stop smoking despite harm Pt Condition on Discharge: Good Discharge Disposition: Discharge Home Discharge Time: <= 30 minutes Discharge Instructions DIET: Follow Instructions for: Heart Healthy Diet Activities you can perform: Regular-No Restrictions Follow up Referrals: PCP Follow-up - 2 Weeks Urology - 2 Weeks Continued Medications: Ciprofloxacin (Cipro) 500 Mg Tab 500 MG PO BID Infection Ref 0 TAB Cyclobenzaprine (Flexeril) 5 Mg Tab 5 MG PO TID Muscle Spasm #90 Ref 0 TAB Finasteride (Alopecia) (Finasteride) 1 Mg Tab 1 MG PO DAILY Gabapentin (Gabapentin) 100 Mg Cap 100 MG PO TID #90 Ref 0 CAP Hydrochlorothiazide (Hydrochlorothiazide) 12.5 Mg Cap 12.5 MG PO BID #60 Ref 0 CAP Hydrocodone-Acetaminophen (Hydrocodone-Acetaminophen) 5-325 mg Tab 1 TAB PO Q4H PRN PAIN Ref 0 TAB Lisinopril (Lisinopril) 5 Mg Tab 5 MG PO DAILY Blood Pressure Management #30 Ref 0 TAB Paroxetine (Paroxetine) 10 Mg Tab 10 MG PO DAILY #30 Ref 0 TAB Tamsulosin (Tamsulosin) 0.4 Mg Cap 0.4 MG PO HS Manage Prostate Problems #30 Ref 0 CAP Tramadol (Tramadol) 50 Mg Tab 100 MG PO TID PRN PAIN Ref 0 TAB Trazodone (Trazodone) 50 Mg Tab 50 MG PO HS Control Depression #30 Ref 0 TAB Umeclidinium-Vilanterol Inh (Anoro Ellipta Inh) 62.5-25 Mcg/Act Aero 1 PUFF INH DAILY COPD #1 Ref 0 INHALER Nettie Molina MD Apr 07, 2017 16:27
--- NOTE | 2017-04-07 16:27 | HHI.DCPOC ---
Discharge Care Plan Diagnosis: (1) Hyponatremia (2) Postoperative urinary retention Goals to Promote Your Health * To prevent worsening of your condition and complications * To maintain your health at the optimal level Directions to Meet Your Goals Take your medications as prescribed Follow your dietary instruction Follow activity as directed Keep your appointments as scheduled Take your immunizations and boosters as scheduled If your symptoms worsen call your PCP, if no PCP go to Urgent Care Center or Emergency Room Smoking is Dangerous to Your Health. Avoid second hand smoke Call the 24-hour hour crisis hotline for domestic abuse at Nettie Molina MD Apr 07, 2017 16:27
[2017-04-07] MEDS ORDERED: TAMSULOSIN HCL 0.4 MG CAP PO SCH (21:00)
--- NOTE | 2017-04-07 22:06 | EKG ---
Date Performed: 04/06/2017 Time Performed: 14:58:19 PTAGE: 61 years EKG: Sinus rhythm Since previous tracing, no significant change noted NORMAL ECG PREVIOUS TRACING : 04/03/2017 23.40.49 DOCTOR: Jag Fried Interpretating Date/Time 04/07/2017 22:05:03
== END 2017-04-07 18:07 | disposition home or self-care (01) | DRG 641 ==
LOC: NEPE 11:26 → NEDA 14:10 → N06A 17:19
PROVIDERS: ADMIT Family Medicine; ATTEND Family Medicine
PROC: 0T9B70Z Drainage of Bladder with Drainage Device, Via Natural or Artificial Opening (ICD-10-PCS; principal; 2017-04-06)
DX: E87.1 Hypo-osmolality and hyponatremia (principal); E86.0 Dehydration; J44.9 Chronic obstructive pulmonary disease, unspecified; N32.89 Other specified disorders of bladder; N99.89 Other postprocedural complications and disorders of genitourinary system; R33.8 Other retention of urine; I10 Essential (primary) hypertension; F32.9 Major depressive disorder, single episode, unspecified; F17.210 Nicotine dependence, cigarettes, uncomplicated; M54.9 Dorsalgia, unspecified; G89.29 Other chronic pain; F41.9 Anxiety disorder, unspecified; R55 Syncope and collapse; R94.31 Abnormal electrocardiogram [ECG] [EKG]
CPT/HCPCS: 74176; 80048; 81001; 82550; 82552; 83605; 83735; 84484; 85025; 85027; 85610; 85730; 87040; 93005; 96374; 99283; J0696; J7030; P9612